=== PATIENT | male | born 1950 | race Caucasian/White ===

== ENCOUNTER 2017-11-12 14:22 | Emergency (ER) | payer OTHER, MEDICARE ==
[~2017-11-12] VITALS: Ht 172.7 cm; Wt 72.6 kg
[2017-11-12 14:25] VITALS: BP_SYST 152
[2017-11-12 14:33] VITALS: BP_SYST 152
== END 2017-11-12 14:33 ==
LOC: SED 14:22
DX: K40.90 Unilateral inguinal hernia, without obstruction or gangrene, not specified as recurrent (principal); R03.0 Elevated blood-pressure reading, without diagnosis of hypertension
CPT/HCPCS: 99283